=== PATIENT | male | born 1960 | race African-American/Black ===

== ENCOUNTER 2016-08-24 17:46 | Emergency (ER) | payer OTHER ==
[~2016-08-24] VITALS: Ht 185.4 cm; Wt 108.9 kg
[~2016-08-24 17:46] MED LIST: AZITHROMYCIN250 MG ORAL; CLOTRIM ANTIFUN15 GM TP; CYCLOBENZAPRINE10 MG ORAL; IBUPROFEN600 MG ORAL; LISINOPRIL20 MG ORAL; METOPROLOL TART50 MG PO; MORPHINE PO; NORCO 10/3251 EA ORAL; NORCO 5-325 TA1 EACH ORAL; VICODIN 5-5001 EACH PO; VICODIN ES 7.51 EACH PO
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
[2016-08-24] MEDS ORDERED: IBUPROFEN600 MG ORAL (19:30)
[2016-08-24] MEDS ORDERED: AMOXICILLIN500 MG ORAL (19:30)
[2016-08-24 19:43] VITALS: BP 169/98
--- NOTE | 2016-08-25 09:32 | Diagnostic Imaging Report ---
Indications: Left foot pain Technique: 3 views of the left foot Findings: Comparison: None. No fracture, dislocation, lytic destruction, periosteal reaction, surrounding soft tissue swelling, or other acute changes are demonstrated. No deformity, alignment abnormality, arthritic change, soft tissue calcification, or other chronic changes are demonstrated. IMPRESSION: Negative left foot series.
== END 2016-08-24 19:44 | disposition home or self-care (01) ==
LOC: EMR 19:31
DX: S93.602A Unspecified sprain of left foot, initial encounter (principal); W22.8XXA Striking against or struck by other objects, initial encounter; Y92.89 Other specified places as the place of occurrence of the external cause; H66.92 Otitis media, unspecified, left ear; I10 Essential (primary) hypertension
CPT/HCPCS: 99283

== ENCOUNTER 2016-10-02 14:01 | Emergency (ER) | payer OTHER ==
[~2016-10-02] VITALS: Ht 185.4 cm; Wt 108.9 kg
[~2016-10-02 14:01] MED LIST changes: +AMOXICILLIN500 MG ORAL
[2016-10-02] MEDS ORDERED: Ketorolac 30mg Inj IM ONE (14:30)
[2016-10-02] MEDS ORDERED: ROBAXIN-750750 MG PO (14:33)
[2016-10-02 14:45] VITALS: BP 163/90
[2016-10-02] MEDS ORDERED: Lisinopril 10mg tab ORAL ONE (14:45)
[2016-10-02 14:54] VITALS: BP 198/102
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
== END 2016-10-02 14:54 | disposition home or self-care (01) ==
LOC: EMR 14:30
DX: S39.012A Strain of muscle, fascia and tendon of lower back, initial encounter (principal); I10 Essential (primary) hypertension; X58.XXXA Exposure to other specified factors, initial encounter; Y92.9 Unspecified place or not applicable; Y99.8 Other external cause status
CPT/HCPCS: 99283; J1885

== ENCOUNTER 2016-10-21 11:25 | Emergency (ER) | payer OTHER ==
[~2016-10-21] VITALS: Ht 185.4 cm; Wt 106.6 kg
[~2016-10-21 11:25] MED LIST changes: +ROBAXIN-750750 MG PO
[2016-10-21 12:15] VITALS: BP 168/96
[2016-10-21] MEDS ORDERED: TdaP Vaccine 0.5ml Syr IM ONE (12:30)
[2016-10-21] MEDS ORDERED: Bacitracin Oint UD TOPIC ONE (12:30)
[2016-10-21] MEDS ORDERED: Ketorolac 60mg Inj IM ONE (12:30)
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
[2016-10-21] MEDS ORDERED: IBUPROFEN600 MG ORAL (12:46)
[2016-10-21] MEDS ORDERED: HM DOUBLE ANT28.4 G1 TP (12:46)
[2016-10-21 13:00] VITALS: BP 168/96
== END 2016-10-21 13:00 | disposition home or self-care (01) ==
LOC: EMR 12:30
DX: S86.011A Strain of right Achilles tendon, initial encounter (principal); S50.812A Abrasion of left forearm, initial encounter; S80.811A Abrasion, right lower leg, initial encounter; Z23 Encounter for immunization; I10 Essential (primary) hypertension; Y09 Assault by unspecified means; Y92.9 Unspecified place or not applicable; Y99.8 Other external cause status
CPT/HCPCS: 90471; 90715; 96372; 99284

== ENCOUNTER 2016-11-20 19:11 | Emergency (ER) | payer OTHER ==
[~2016-11-20] VITALS: Ht 185.4 cm; Wt 108.9 kg
[~2016-11-20 19:11] MED LIST changes: +HM DOUBLE ANT28.4 G1 TP
[2016-11-20 19:27] VITALS: BP 162/86
[2016-11-20] MEDS ORDERED: Ketorolac 30mg Inj IM ONE (19:45)
[2016-11-20] MEDS ORDERED: IBUPROFEN600 MG ORAL (19:59)
[2016-11-20 20:09] VITALS: BP 162/86
--- NOTE | 2016-11-22 00:42 | Emergency Room Report ---
History of Present Illness General Chief Complaint: Pain Source: Patient Present Illness HPI 48-year-old male presents to ED complaining of bilateral feet pain. States he' s had the pain for 6 months. Denies trauma. States that his pain management doctor has prescribed him Percocet without relief. Pain is throbbing, 9/10. Worse with walking. Able to bear weight. Currently being evaluated by a matlab developer. No other aggravating or relieving factors. Denies any other associated Allergies: Coded Allergies: No Known Allergies (Unverified , 08/27/12) Patient History Past Medical History: none Past Surgical History: none Pertinent Family History: none Social History: Denies: alcohol use, drug use, smoking Immunizations: UTD Reviewed Nursing Documentation: PMH: Agreed, PSxH: Agreed Nursing Documentation-PMH Hx Hypertension: Yes Hx Neurological Problems: Yes - Right knee surgery, pain management regimen for R. Shoulder pain Review of Systems All Other Systems: negative except mentioned in HPI Physical Exam Vital Signs Date Time Temp Pulse Resp B/P Pulse Ox O2 Delivery O2 Flow Rate FiO2 11/20/16 19:18 97.9 77 20 162/86 97 Room Air Sp02 EP Interpretation: reviewed, normal General Appearance: no apparent distress, alert, GCS 15, non-toxic Head: normocephalic, atraumatic Eyes: bilateral eye PERRL, bilateral eye normal inspection ENT: hearing grossly normal, normal pharynx, no angioedema, normal voice Neck: full range of motion, supple/symm/no masses Respiratory: chest non-tender, lungs clear, normal breath sounds, speaking full sentences Cardiovascular #1: regular rate, rhythm, no edema Cardiovascular #2: 2+ carotid (R), 2+ carotid (L), 2+ radial (R), 2+ radial (L) , 2+ dorsalis pedis (R), 2+ dorsalis pedis (L) Gastrointestinal: normal bowel sounds, non tender, soft, non-distended, no guarding, no rebound Rectal: deferred Genitourinary: normal inspection, no CVA tenderness Musculoskeletal: back normal, gait/station normal, normal range of motion, tender - TTP to bilateral sole of foot Neurologic: alert, oriented x3, responsive, motor strength/tone normal, sensory intact, speech normal Psychiatric: judgement/insight normal, memory normal, mood/affect normal, no suicidal/homicidal ideation Reflexes: 3+ bicep (R), 3+ bicep (L), 3+ tricep (R), 3+ tricep (L), 3+ knee (R) , 3+ knee (L) Skin: normal color, no rash, warm/dry, well hydrated Lymphatic: no adenopathy Medical Decision Making Diagnostic Impression: Primary Impression: Foot sprain Qualified Codes: S93.609A - Unspecified sprain of unspecified foot, initial encounter Additional Impression: Opiate dependence Qualified Codes: F11.29 - Opioid dependence with unspecified opioid-induced disorder ER Course Hospital Course 56-year-old male presents to ED complaining of bilateral foot pain no trauma Differential diagnoses include: Fracture, dislocation, sprain, contusion, bursitis Clinical course Patient placed on stretcher. After initial history, physical exam reveals an middle-aged male in no acute distress. There is some tenderness to the soles of bilateral feet. No obvious deformity. No bruising. Patient has wraps on both feet targeting the plantar fasciitis. Is consistent with plantar fasciitis. Patient is already receiving multiple narcotics. Given Toradol in ED with pain improved Diagnosis - foot sprain, opiate dependence Stable and discharged to home with prescription for Motrin. Followup with PMD/ podiatry. Return to ED if symptoms recur or worsen Last Vital Signs Date Time Temp Pulse Resp B/P Pulse Ox O2 Delivery O2 Flow Rate FiO2 11/20/16 20:09 97.9 77 20 162/86 97 Room Air Status: improved Disposition: HOME, SELF-CARE Condition: Stable Scripts Ibuprofen* (MOTRIN*) 600 Mg Tablet 600 MG ORAL Q8H Y for For Pain, #30 TAB 0 Refills Prov: BEE WORKMAN M.D. 11/20/16 Referrals: [facility],REFERRING (PCP) Patient Instructions: Plantar Fasciitis With [facility] BEE WORKMAN M.D. Nov 22, 2016 00:42
== END 2016-11-20 20:09 | disposition home or self-care (01) ==
LOC: EMR 19:39
DX: S93.602A Unspecified sprain of left foot, initial encounter (principal); S93.601A Unspecified sprain of right foot, initial encounter; F11.20 Opioid dependence, uncomplicated; X58.XXXA Exposure to other specified factors, initial encounter; Y92.9 Unspecified place or not applicable; I10 Essential (primary) hypertension
CPT/HCPCS: 96372; 99283; J1885

== ENCOUNTER 2017-02-26 20:42 | Emergency (ER) | payer OTHER ==
[~2017-02-26] VITALS: Ht 185.4 cm; Wt 108.9 kg
[2017-02-26 21:10] VITALS: BP 164/85
--- NOTE | 2017-02-26 21:21 | Emergency Room Report ---
History of Present Illness General Chief Complaint: General Complaint Source: Patient Present Illness HPI Is a 56-year-old male who is right-hand dominant. He presents with chief complaint left arm pain. He said his been ongoing for a month. He claimed that he never had this problem before. Denies any fever chills or pain is 10 out of 10. Throbbing in nature. Worse at night. 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 Denies any trauma. No incontinence of bowel or urine. Also said he is out of his pain medication. Allergies: Coded Allergies: No Known Allergies (Unverified , 08/27/12) Patient History Past Medical History: see triage record, old chart reviewed Past Surgical History: other Pertinent Family History: none Social History: Denies: smoking Immunizations: other Reviewed Nursing Documentation: PMH: Agreed, PSxH: Agreed Nursing Documentation-PMH Past Medical History: No History, Except For Hx Hypertension: Yes Hx Neurological Problems: Yes - Right knee surgery, pain management regimen for R. Shoulder pain Review of Systems Eye: Denies: blurred vision, eye pain ENT: Denies: ear pain, nose congestion, throat swelling Respiratory: Denies: cough, shortness of breath Cardiovascular: Denies: chest pain, palpitations Gastrointestinal: Denies: abdominal pain, diarrhea, nausea, vomiting Musculoskeletal: Reports: muscle pain, Denies: back pain, joint pain Skin: Denies: rash Neurological: Denies: headache, numbness Endocrine: Denies: increased thirst, increased urine Hematologic/Lymphatic: Denies: easy bruising All Other Systems: negative except mentioned in HPI Physical Exam Vital Signs Date Time Temp Pulse Resp B/P Pulse Ox O2 Delivery O2 Flow Rate FiO2 02/26/17 20:59 98.6 81 16 164/85 100 Room Air vitals with hypertension Sp02 EP Interpretation: reviewed, normal General Appearance: well appearing, no apparent distress, alert Head: normocephalic, atraumatic Eyes: bilateral eye EOMI, bilateral eye PERRL ENT: hearing grossly normal, normal pharynx Neck: full range of motion, supple, no meningismus Respiratory: chest non-tender, lungs clear, normal breath sounds Cardiovascular #1: regular rate, rhythm, no murmur Gastrointestinal: normal bowel sounds, non tender, no mass, no organomegaly, no bruit, non-distended Musculoskeletal: back normal, gait/station normal, normal range of motion Psychiatric: mood/affect normal Skin: warm/dry Medical Decision Making Diagnostic Impression: Primary Impression: Opiate dependence Qualified Codes: F11.20 - Opioid dependence, uncomplicated Additional Impression: Arm pain, left ER Course Patient presents with left arm pain. I suspect her high opioid dependence issue. He said that he hasn't had left arm pain before. On the computer he he' s been here several times with the same thing. He claimed that he is out of his narcotic. On the [facility] system, he received 90 tablets of hydrocodone 10 mg on 02/03/2017. I see no trauma. He believes arm without a problem. No evidence of DVT. No evidence of occlusion of artery. We'll discharge home. Last Vital Signs Date Time Temp Pulse Resp B/P Pulse Ox O2 Delivery O2 Flow Rate FiO2 02/26/17 20:59 98.6 81 16 164/85 100 Room Air Status: improved Disposition: HOME, SELF-CARE Condition: Stable Additional Instructions: followup withyour doctor in a week. See your Dr. for refills of your pain medication. Return if symptom worsen. SHANTHI GRAJEDA M.D. Feb 26, 2017 21:21
[2017-02-26] MEDS ORDERED: Ketorolac 60mg Inj IM ONE (21:30)
[2017-02-26 22:00] VITALS: BP 164/85
== END 2017-02-26 21:45 | disposition home or self-care (01) ==
LOC: EMR 21:32
DX: M79.602 Pain in left arm (principal); F11.20 Opioid dependence, uncomplicated; I10 Essential (primary) hypertension
CPT/HCPCS: 96372; 99283

== ENCOUNTER 2017-08-12 18:46 | Emergency (ER) | payer OTHER ==
[~2017-08-12] VITALS: Ht 185.4 cm; Wt 106.6 kg
[2017-08-12] MEDS ORDERED: NORCO 10-325 T1 EACH ORAL (18:54)
[2017-08-12] MEDS ORDERED: LISINOPRIL40 MG ORAL (18:54)
[2017-08-12 19:10] VITALS: BP 161/100
--- NOTE | 2017-08-12 19:51 | Emergency Room Report ---
History of Present Illness General Chief Complaint: General Complaint Source: Patient Present Illness HPI The patient presents with 2 days of illness. He's felt feverish and been complaining about left chest pain. Denies any productive cough. He vomited one time today. Is having night sweats. The pain in his left chest is worse when he is exerting himself and standing up. Denies any diarrhea. Risk factors for CAD: HTN - the others negative. No change in bowels. He ran out of [employer] a few days ago. Has been treated for muscle spasms in the past. 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 Shoulder pain Review of Systems All Other Systems: negative except mentioned in HPI Physical Exam Vital Signs Date Time Temp Pulse Resp B/P (MAP) Pulse Ox O2 Delivery O2 Flow Rate FiO2 08/12/17 18:49 98.1 92 19 161/100 97 Room Air Sp02 EP Interpretation: reviewed, normal General Appearance: well appearing, no apparent distress, GCS 15 Head: normocephalic Eyes: bilateral eye normal inspection, bilateral eye PERRL ENT: moist mucus membranes Neck: supple Respiratory: lungs clear, normal breath sounds, other - some chest wall tenderness Cardiovascular #1: regular rate, rhythm, no edema Cardiovascular #2: 2+ radial (R) Gastrointestinal: normal inspection, normal bowel sounds, non tender, no mass, non-distended Musculoskeletal: back normal, gait/station normal, normal range of motion, no calf tenderness Neurologic: alert, oriented x3, grossly normal Psychiatric: mood/affect normal Skin: normal inspection, warm/dry Medical Decision Making Diagnostic Impression: Primary Impression: Chest pain Additional Impression: Viral syndrome ER Course Patient presents with subjective fevers and chest pain. Ddx: Pna, bronchitis, pleurisy, chest wall pain, muscle spasms amongst others. Though cardiac risk factors minimal, need to exclude cardiac cause. EKG, CXR, labs ordered. Treated initially with aspirin. EKG with LVH, no injury. CXR clear. Labs with normal WBC (lymphocytosis), neg troponin. Slightly high glucose. Patient sleeping and in NAD. Discussed treatment plan. Patient stable for outpatient observation and treatment. Laboratory Tests Test 08/12/17 19:45 White Blood Count 4.1 K/UL (4.8-10.8) L Red Blood Count 4.93 M/UL (4.70-6.10) Hemoglobin 14.0 G/DL (14.2-18.0) L Hematocrit 44.3 % (42.0-52.0) Mean Corpuscular Volume 90 FL (80-99) Mean Corpuscular Hemoglobin 28.4 PG (27.0-31.0) Mean Corpuscular Hemoglobin Concent 31.6 G/DL (32.0-36.0) L Red Cell Distribution Width 13.1 % (11.6-14.8) Platelet Count 252 K/UL (150-450) Mean Platelet Volume 7.0 FL (6.5-10.1) Neutrophils (%) (Auto) 30.7 % (45.0-75.0) L Lymphocytes (%) (Auto) 43.0 % (20.0-45.0) Monocytes (%) (Auto) 19.4 % (1.0-10.0) H Eosinophils (%) (Auto) 5.6 % (0.0-3.0) H Basophils (%) (Auto) 1.3 % (0.0-2.0) Prothrombin Time 9.8 SEC (9.30-11.50) Prothrombin Time INR 1.0 (0.9-1.1) PTT 25 SEC (23-33) Sodium Level 140 MMOL/L (136-145) Potassium Level 3.7 MMOL/L (3.5-5.1) Chloride Level 105 MMOL/L (98-107) Carbon Dioxide Level 25 MMOL/L (21-32) Anion Gap 10 mmol/L (5-15) Blood Urea Nitrogen 19 mg/dL (7-18) H Creatinine 1.3 MG/DL (0.55-1.30) Estimate Glomerular Filtration Rate > 60 mL/min (>60) Glucose Level 147 MG/DL (74-106) H Calcium Level 8.2 MG/DL (8.5-10.1) L Total Bilirubin 0.1 MG/DL (0.2-1.0) L Aspartate Amino Transferase (AST) 18 U/L (15-37) Alanine Aminotransferase (ALT) 33 U/L (12-78) Alkaline Phosphatase 70 U/L (46-116) Total Creatine Kinase 212 U/L (26-308) Troponin I 0.018 ng/mL (0.000-0.056) Pro-B-Type Natriuretic Peptide 33 pg/mL (0-125) Total Protein 7.4 G/DL (6.4-8.2) Albumin 3.6 G/DL (3.4-5.0) Globulin 3.8 g/dL Albumin/Globulin Ratio 0.9 (1.0-2.7) L EKG Diagnostic Results Rate: normal Rhythm: NSR ST Segments: no acute changes - LVH Rhythm Strip Diag. Results EP Interpretation: yes Rhythm: NSR, no PVC's, no ectopy Chest X-Ray Diagnostic Results Chest X-Ray Diagnostic Results : Chest X-Ray Ordered: Yes # of Views/Limited/Complete: 1 View Indication: Chest Pain Interpretation: no consolidation, no effusion, no pneumothorax, no acute cardiopulmonary disease Impression: No acute disease Electronically Signed by: Electronically signed by Chaz Rowan MD Last Vital Signs Date Time Temp Pulse Resp B/P (MAP) Pulse Ox O2 Delivery O2 Flow Rate FiO2 08/12/17 21:35 97.7 77 16 154/82 99 Room Air Status: improved Disposition: HOME, SELF-CARE Condition: Improved Scripts Acetaminophen (Tylenol) 325 Mg Tablet 650 MG ORAL Q6H Y for Prn Pain/Headache/Temp > 101, #20 TAB 0 Refills Prov: Chaz Rowan M.D. 08/12/17 Tramadol Hcl* (ULTRAM*) 50 Mg Tablet 50 MG ORAL Q6H Y for For Pain, #14 TAB 0 Refills Prov: Chaz Rowan M.D. 08/12/17 Chaz Rowan M.D. Aug 12, 2017 19:50
[2017-08-12 19:56] LABS: BASOPHILS % (AUTO) 1.3 % (0.0-2.0); EOSINOPHILS % (AUTO) 5.6 % (0.0-3.0); HEMATOCRIT 44.3 % (42.0-52.0); MEAN CORPUSCULAR VOLUME 90 FL (80-99); MONOCYTES % (AUTO) 19.4 % (1.0-10.0); NEUTROPHILS % (AUTO) 30.7 % (45.0-75.0); PLATELET COUNT 252 K/UL (150-450); RED BLOOD COUNT 4.93 M/UL (4.70-6.10); RED CELL DISTRIBUTION WIDTH 13.1 % (11.6-14.8); WHITE BLOOD COUNT 4.1 K/UL (4.8-10.8)
[2017-08-12 20:12] LABS: ANION GAP 10 mmol/L (5-15); BLOOD UREA NITROGEN 19 mg/dL (7-18); CALCIUM 8.2 MG/DL (8.5-10.1); CARBON DIOXIDE 25 MMOL/L (21-32); CHLORIDE 105 MMOL/L (98-107); CREATININE 1.3 MG/DL (0.55-1.30); POTASSIUM 3.7 MMOL/L (3.5-5.1); SODIUM 140 MMOL/L (136-145)
[2017-08-12 20:23] LABS: ALANINE AMINOTRANSFERASE 33 U/L (12-78); ALBUMIN 3.6 G/DL (3.4-5.0); ALBUMIN/GLOBULIN RATIO 0.9 (1.0-2.7); ALKALINE PHOSPHATASE 70 U/L (46-116); ASPARTATE AMINO TRANSFERASE 18 U/L (15-37); BILIRUBIN,TOTAL 0.1 MG/DL (0.2-1.0); CREATINE KINASE 212 U/L (26-308)
[2017-08-12] MEDS ORDERED: TRAMADOL HCL50 MG ORAL (21:04)
[2017-08-12] MEDS ORDERED: TYLENOL325 MG ORAL (21:04)
[2017-08-12 21:35] VITALS: BP 154/82
--- NOTE | 2017-08-13 12:07 | Diagnostic Imaging Report ---
Indication: Chest pain Technique: One view of the chest Comparison: 04/06/2013 Findings: Lungs and pleural spaces are clear. Heart size is normal. There is radiation currently. No other significant change Impression: No acute process This agrees with the preliminary interpretation provided by the emergency room physician
--- NOTE | 2017-08-13 16:06 | Cardiology Report ---
APPROVED REPORT EKG Measurement Heart [id number] SD [id number] Normal sinus rhythm Possible Left atrial enlargement Left ventricular hypertrophy Cannot rule out Septal infarct, age undetermined Abnormal ECG
== END 2017-08-12 21:35 | disposition home or self-care (01) ==
LOC: EMR 19:10
DX: R07.9 Chest pain, unspecified (principal); B34.9 Viral infection, unspecified; I10 Essential (primary) hypertension
CPT/HCPCS: 36415; 71045; 80053; 82550; 83880; 84484; 85025; 85610; 85730; 93005; 96361; 96374; 96375; 99284; J2405; S0028

== ENCOUNTER 2017-09-07 19:15 | Emergency (ER) | payer OTHER ==
[~2017-09-07 19:15] MED LIST changes: +LISINOPRIL40 MG ORAL; +NORCO 10-325 T1 EACH ORAL; +TRAMADOL HCL50 MG ORAL; +TYLENOL325 MG ORAL
--- NOTE | 2017-09-07 22:20 | Emergency Room Report ---
History of Present Illness General Chief Complaint: To Be Triaged Present Illness HPI This pt. left prior to being evaluated by ED provider. I have not examined this pt. Allergies: Coded Allergies: No Known Allergies (Unverified , 08/27/12) Nursing Documentation-PMH Hx Hypertension: Yes Hx Neurological Problems: Yes - Right knee surgery, pain management regimen for R. Shoulder pain Medical Decision Making PA Attestation Dr. Rizvi is my supervising physician whom pt. management has been discussed with. ER Course This pt. left prior to being evaluated by ED provider. I have not examined this pt. Disposition: LEFT W/OUT BEING SEEN Condition: Unknown Referrals: NOT CHOSEN IPA/,REFERRING (PCP) Bushra Ibarra Sep 07, 2017 22:20
== END 2017-09-07 23:48 | disposition left against medical advice (07) ==
LOC: EMR 19:16
DX: M25.511 Pain in right shoulder (principal); I10 Essential (primary) hypertension; Z53.21 Procedure and treatment not carried out due to patient leaving prior to being seen by health care provider
CPT/HCPCS: 99281

== ENCOUNTER 2017-10-03 18:12 | Emergency (ER) | payer OTHER ==
[~2017-10-03] VITALS: Ht 185.4 cm; Wt 108.9 kg
[2017-10-03 18:31] VITALS: BP 176/102
--- NOTE | 2017-10-03 18:37 | Emergency Room Report ---
History of Present Illness General Chief Complaint: Pain Source: Patient Present Illness HPI 57-year-old male presents to the emergency department complaining of 9/10 in severity pain in the right shoulder that radiates up towards the right side of the neck for approximately 3 hours. Patient states that his pain is progressive and it feels as though his muscles are tightening up. Denies acute onset. Patient reports history of similar symptoms in the past after working too hard. Denies mid back pain. 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 Patient states he is [id number]. Denies weakness or numbness/ paresthesias in the affected arm. pain is exacerbated with touch or lifting/using right arm. denies clicking of the shoulder joint, obvious deformity , erythema or increased temperature to palpation. Denies ELIZABETH, N/V, cough, chest pain, Palpitations, fevers, chills, recent trauma or fall. He has a history of hypotension or and is out of his HTN medication: Lisinopril and is requesting refill. Allergies: Coded Allergies: No Known Allergies (Unverified , 08/27/12) Patient History Past Medical History: see triage record Past Surgical History: none Pertinent Family History: none Reviewed Nursing Documentation: PMH: Agreed, PSxH: Agreed Nursing Documentation-PMH Past Medical History: No History, Except For Hx Hypertension: Yes Hx Neurological Problems: Yes - Right knee surgery, pain management regimen for R. Shoulder pain Review of Systems All Other Systems: negative except mentioned in HPI Physical Exam Vital Signs Date Time Temp Pulse Resp B/P (MAP) Pulse Ox O2 Delivery O2 Flow Rate FiO2 10/03/17 18:18 97.8 89 16 176/102 97 Room Air 97.9 Sp02 EP Interpretation: reviewed, normal General Appearance: no apparent distress, alert, GCS 15, non-toxic Head: normocephalic, atraumatic Eyes: bilateral eye normal inspection, bilateral eye PERRL, bilateral eye other - no photophobia ENT: hearing grossly normal, normal voice Neck: full range of motion, no bony tend, tender lateral - right lateral extending down into the upper right shoulder . Respiratory: chest non-tender, lungs clear, normal breath sounds, no respiratory distress, no wheezing, speaking full sentences Cardiovascular #1: regular rate, rhythm, normal capillary refill Cardiovascular #2: 2+ radial (R) Musculoskeletal: back normal, gait/station normal, normal range of motion, tender - TTP to the right lateral cervical musculature and TTP to the Right trapezius, and proximal and caudal portion of the right shoulder. no weakness. Neurologic: alert, oriented x3, responsive, motor strength/tone normal, sensory intact, speech normal, grossly normal Psychiatric: judgement/insight normal Skin: normal color, no rash, warm/dry, well hydrated Medical Decision Making PA Attestation Dr. Zambrano is my supervising Physician whom patient management has been discussed with. Diagnostic Impression: Primary Impression: Neck muscle strain Qualified Codes: S16.1XXA - Strain of muscle, fascia and tendon at neck level , initial encounter Additional Impression: Muscle strain ER Course 57-year-old male presents to the emergency department complaining of 9/10 in severity pain in the right shoulder that radiates up towards the right side of the neck for approximately 3 hours. Patient states that his pain is progressive and it feels as though his muscles are tightening up. Denies acute onset. Patient reports history of similar symptoms in the past after working too hard. Denies mid back pain. 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 Patient states he is [id number]. Denies weakness or numbness/ paresthesias in the affected arm. pain is exacerbated with touch or lifting/using right arm. denies clicking of the shoulder joint, obvious deformity , erythema or increased temperature to palpation. Denies ELIZABETH, N/V, cough, chest pain, Palpitations, fevers, chills, recent trauma or fall. He has a history of hypotension or and is out of his HTN medication: Lisinopril and is requesting refill. Ddx considered but are not limited to Fracture, dislocation, contusion, Epidural abscess, Sprain/Strain/Spasm, Nerve Impingement, Aortic Dissection, Vertebral Artery dissection just to name a few. Vital signs: BP Is elevated, remaining VS are WNL, pt. is afebrile H&PE are most consistent with muscle spasm/Strain no neurological signs, NAD other than when palpating. ORDERS: none required at this time. ED INTERVENTIONS: -Lisinopril PO -Review of this pt.'s CURES REPORT: frequent rx's for [facility] and [place] usually by the same prescribing provider. pt. last fill was on 09/12/17 DISCHARGE: At this time pt. is stable for d/c to home. Will provide printed patient care instructions, and any necessary prescriptions. Care plan and follow up instructions have been discussed with the patient prior to discharge. Last Vital Signs Date Time Temp Pulse Resp B/P (MAP) Pulse Ox O2 Delivery O2 Flow Rate FiO2 10/03/17 18:18 97.8 89 16 176/102 97 Room Air 97.9 Disposition: HOME, SELF-CARE Condition: Stable Scripts Acetaminophen* (TYLENOL EXTRA STRENGTH*) 500 Mg Tablet 500 MG ORAL Q6H Y for Mild Pain/Temp > 100.5, #20 TAB 0 Refills Prov: Bushra Ibarra 10/03/17 Lisinopril (LISINOPRIL*) 20 Mg Tablet 20 MG ORAL DAILY, #10 TAB Prov: Bushra Ibarra 10/03/17 Methocarbamol* (ROBAXIN*) 500 Mg Tablet 1000 MG PO TID, #30 TAB 0 Refills Prov: Bushra Ibarra 10/03/17 Patient Instructions: Muscle Strain, Shoulder Pain, [id number] Additional Instructions: Take medications as directed. Follow up with a Primary Care Provider in 3 days, even if your symptoms have resolved. --Please review list of primary care clinics, if you do not already have a primary care provider Return sooner to ED if new symptoms occur, or current symptoms become worse. Do not drink alcohol, drive, or operate heavy machinery while taking Robaxin as this may cause drowsiness. - Please note that this Emergency Department Report was dictated using [employer] technology software, occasionally this can lead to erroneous entry secondary to interpretation by the dictation equipment. Bushra Ibarra Oct 03, 2017 18:36
[2017-10-03] MEDS ORDERED: ROBAXIN500 MG PO (18:45)
[2017-10-03] MEDS ORDERED: Ketorolac 60mg Inj IM ONE (18:45)
[2017-10-03] MEDS ORDERED: LISINOPRIL20 MG ORAL (18:52)
[2017-10-03] MEDS ORDERED: TYLENOL EXTRA500 MG ORAL (18:52)
[2017-10-03 18:57] VITALS: BP 176/102
[2017-10-03] MEDS ORDERED: Lisinopril 10mg tab ORAL ONE (19:00)
== END 2017-10-03 19:22 | disposition home or self-care (01) ==
LOC: EMR 19:00
DX: S16.1XXA Strain of muscle, fascia and tendon at neck level, initial encounter (principal); S46.911A Strain of unspecified muscle, fascia and tendon at shoulder and upper arm level, right arm, initial encounter; X50.9XXA Other and unspecified overexertion or strenuous movements or postures, initial encounter; Y92.9 Unspecified place or not applicable; I10 Essential (primary) hypertension
CPT/HCPCS: 96372; 99284

== ENCOUNTER 2017-10-20 01:33 | Emergency (ER) | payer OTHER ==
[~2017-10-20 01:33] MED LIST changes: +ROBAXIN500 MG PO; +TYLENOL EXTRA500 MG ORAL
== END 2017-10-20 01:39 | disposition left against medical advice (07) ==
LOC: EMR 01:39
DX: Z53.21 Procedure and treatment not carried out due to patient leaving prior to being seen by health care provider (principal)